=== PATIENT | female | born 2000 | race Caucasian/White ===

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

== ENCOUNTER → 2019-07-13 | Outpatient (CLI) | payer BC, OTHER, MEDICAID ==
[~2019-07-13] MED LIST changes: -ISOVUE-370 76% 100ML VIAL (Q9967) As Ordered ONE
--- NOTE | 2019-07-13 19:15 | REP ---
NASAL BONES: Three views of the nasal bones are performed. There is a nondisplaced fracture of the nasal bones. Maxillary spines are intact. Visualized paranasal sinuses are clear with no air fluid levels. IMPRESSION: Nondisplaced fracture of the nasal bones. Electronically Signed by Darius Marroquin MD 07/13/2019 11:27 P
== END ==
LOC: M WUC 17:21
PROVIDERS: ATTEND Physician Assistant
DX: S02.2XXA Fracture of nasal bones, initial encounter for closed fracture (principal); X58.XXXA Exposure to other specified factors, initial encounter; Y92.89 Other specified places as the place of occurrence of the external cause

== ENCOUNTER → 2019-12-14 | Outpatient (REF) | payer OTHER ==
[~2019-12-14] MED LIST changes: -ACET120S PO; +ACET125EL PO; +ASPI81CH48 PO; +ENDO100S PV; +ESTR2TAB2 PO; +LOVE1INJ SC; +MACR100C43 PO; +NALT50TA4 PO; +PRED10PA PO; +PRENTAB9 PO; +PROG50IN4 IM; +SYNT50TA PO
[2019-12-14 14:50] LABS: ESTRADIOL 1658.2 PG/ML; PROGESTERONE 28.34 NG/ML
== END ==
LOC: M LABDRWAD 12:19
PROVIDERS: ATTEND Obstetrics & Gynecology Reproductive Endocrinology
DX: E28.9 Ovarian dysfunction, unspecified (principal)

== ENCOUNTER → 2019-12-19 | Outpatient (REF) | payer OTHER ==
[2019-12-19 13:26] LABS: HCG, SERUM QUANTITATIVE < 1.0 MIU/ML
[2019-12-19 13:35] LABS: PROGESTERONE 19.88 NG/ML
== END ==
LOC: M LABDRWAD 11:10
PROVIDERS: ATTEND Obstetrics & Gynecology Reproductive Endocrinology
DX: Z32.00 Encounter for pregnancy test, result unknown (principal)

== ENCOUNTER → 2020-02-13 | Outpatient (REF) | payer OTHER ==
[2020-02-14 10:02] LABS: ESTRADIOL 420.8 PG/ML; PROGESTERONE 42.9 NG/ML
== END ==
LOC: M LABDRWAD 12:17
PROVIDERS: ATTEND Obstetrics & Gynecology Reproductive Endocrinology
DX: E28.9 Ovarian dysfunction, unspecified (principal)

== ENCOUNTER 2020-02-18 02:05 | Emergency (ER) | payer BC, OTHER ==
[~2020-02-18] VITALS: Ht 157.5 cm; Wt 100.0 kg
[~2020-02-18 02:05] MED LIST changes: -ASPI81CH48 PO; -ENDO100S PV; -ESTR2TAB2 PO; -LOVE1INJ SC; -MACR100C43 PO; -NALT50TA4 PO; -PRED10PA PO; -PRENTAB9 PO; -PROG50IN4 IM; -SYNT50TA PO
[2020-02-18] MEDS ORDERED: ASPI81CH48 PO (02:17)
[2020-02-18] MEDS ORDERED: ESTR2TAB2 PO (02:17)
[2020-02-18] MEDS ORDERED: PRED10PA PO (02:17)
[2020-02-18] MEDS ORDERED: PRENTAB9 PO (02:17)
[2020-02-18] MEDS ORDERED: SYNT50TA PO (02:17)
[2020-02-18] MEDS ORDERED: LOVE1INJ SC (02:17)
[2020-02-18] MEDS ORDERED: ENDO100S PV (02:17)
[2020-02-18] MEDS ORDERED: NALT50TA4 PO (02:17)
[2020-02-18] MEDS ORDERED: PROG50IN4 IM (02:17)
[2020-02-18 03:04] LABS: HEMATOCRIT 41.5 % (36.0-47.0); HEMOGLOBIN 13.4 g/dl (12.0-15.5); MEAN CORPUSCULAR HEMOGLOBIN 30.2 pg (27.0-33.0); MEAN CORPUSCULAR HGB CONC 32.3 g/dl (32.0-36.5); MEAN CORPUSCULAR VOLUME 93.5 fl (80.0-96.0); PLATELET COUNT, AUTOMATED 397 10^3/uL (150-450); RED BLOOD COUNT 4.44 10^6/uL (4.00-5.40); WHITE BLOOD COUNT 19.7 10^3/uL (4.0-10.0)
[2020-02-18 06:48] LABS: BASO # 0.1 10^3/uL (0.0-0.2); BASO % 0.3 % (0.0-1.0); EOS # 0.2 10^3/uL (0.0-0.5); EOS % 0.8 % (0.0-3.0); LYMPH # 6.2 10^3/uL (1.5-5.0); LYMPH % 32.7 % (24.0-44.0); NEUTROPHILS # 11.5 10^3/uL (1.5-8.5); NEUTROPHILS % 60.8 % (36.0-66.0)
--- NOTE | 2020-02-18 08:54 | REPVR ---
PROCEDURE INFORMATION: Exam: US First Trimester, Transabdominal and US , Transvaginal Exam date and time: 02/18/2020 7:39 AM Age: 19 years old Clinical indication: Lmp or gestational age (in weeks): 3w6d; Antepartum complications; Bleeding; ; Additional info: Vaginal bleedin ivf, implantation 02/06 TECHNIQUE: Imaging protocol: Real-time transabdominal obstetrical ultrasound of the maternal pelvis and a first trimester , less than 14 weeks 0 days, with image documentation. Transvaginal imaging was used for better evaluation of the fetus, adnexa, and/or cervix. COMPARISON: No relevant prior studies available. FINDINGS: Gestation: No intrauterine gestation was identified. MATERNAL: Uterus: The uterus measures 6.9 x 3.6 x 5.1 cm as best seen transvaginally. It is homogeneous in echotexture, without demonstrated lesion. The endometrium measures up to 16.3 mm in thickness, and there is small fluid within. Right adnexa: The right ovary measures 1.8 x 3.2 x 1.4 cm. It contains small follicles and demonstrates internal flow. Left adnexa: The left ovary measures 2.0 x 1.9 x 1.4 cm. It contains small follicles and demonstrates internal flow. Intraperitoneal space: There is trace free fluid in the cul-de-sac. No extraovarian adnexal mass is demonstrated. IMPRESSION: 1. No intrauterine or extrauterine gestation identified, with the endometrium thickened up to 16.3 mm and with small fluid. Findings could represent normal early or failed . Suggest correlation with serial beta hCGs and follow-up ultrasound when clinically appropriate. 2. Trace free fluid in the cul-de-sac. Electronically signed by: Jose Bruce On 02/18/2020 08:54:08 AM
[2020-02-18] MEDS ORDERED: MACR100C43 PO (10:15)
[2020-02-18 10:37] VITALS: BP 144/83
--- NOTE | 2020-02-18 11:35 | ED PDOC ---
Post-Departure Follow-Up pati gates and dr baig faxed formal report of first trimester us for Андрей Conklin lg, MD Feb 18, 2020 11:35
== END 2020-02-18 10:39 | disposition home or self-care (01) ==
LOC: M ED 02:05
DX: O26.851 Spotting complicating pregnancy, first trimester (principal); O23.41 Unspecified infection of urinary tract in pregnancy, first trimester; O99.891 Other specified diseases and conditions complicating pregnancy; O99.281 Endocrine, nutritional and metabolic diseases complicating pregnancy, first trimester; E28.2 Polycystic ovarian syndrome; E03.9 Hypothyroidism, unspecified; Z3A.01 Less than 8 weeks gestation of pregnancy

== ENCOUNTER → 2020-02-20 | Outpatient (REF) | payer OTHER ==
[~2020-02-20] MED LIST changes: +ASPI81CH48 PO; +ENDO100S PV; +ESTR2TAB2 PO; +LOVE1INJ SC; +MACR100C43 PO; +NALT50TA4 PO; +PRED10PA PO; +PRENTAB9 PO; +PROG50IN4 IM; +SYNT50TA PO
[2020-02-20 13:15] LABS: PROGESTERONE 21.72 NG/ML
== END ==
LOC: M LABDRWAD 12:09
PROVIDERS: ATTEND Obstetrics & Gynecology Reproductive Endocrinology
DX: Z32.00 Encounter for pregnancy test, result unknown (principal)

== ENCOUNTER → 2020-04-23 | Outpatient (REF) | payer OTHER ==
[~2020-04-23] MED LIST changes: -BUPR150T3 PO; +BUPR150T4 PO
[2020-04-23 14:14] LABS: HEMOGLOBIN 13.9 g/dl (12.0-15.5); MEAN CORPUSCULAR HEMOGLOBIN 30.8 pg (27.0-33.0); MEAN CORPUSCULAR HGB CONC 33.1 g/dl (32.0-36.5); MEAN CORPUSCULAR VOLUME 93.1 fl (80.0-96.0); PLATELET COUNT, AUTOMATED 333 10^3/uL (150-450); RED BLOOD COUNT 4.51 10^6/uL (4.00-5.40)
[2020-04-23 15:00] LABS: FREE T4 0.97 NG/DL (0.76-1.46); THYROID STIMULATING HORMONE 1.27 uIU/ML (0.358-3.740)
[2020-04-23 15:41] LABS: HEPATITIS C VIRUS ABY INDEX < 0.0 INDEX (<0.8); HIV 1&2 SCREEN CENTAUR NEGATIVE (NEGATIVE)
[2020-04-23 15:54] LABS: CHLAMYDIA DNA AMPLIFICATION NEGATIVE (NEGATIVE); GC DNA AMPLIFICATION NEGATIVE (NEGATIVE)
== END ==
LOC: M PLALAB 10:37
PROVIDERS: ATTEND Obstetrics & Gynecology
DX: Z3A.13 13 weeks gestation of pregnancy (principal)

== ENCOUNTER → 2020-05-21 | Outpatient (REF) | payer OTHER | LOC: M SFHCWAGY 15:23 | PROVIDERS: ATTEND Advanced Practice Midwife | DX: O09.812 Supervision of pregnancy resulting from assisted reproductive technology, second trimester (principal) ==

== ENCOUNTER → 2020-06-11 | Outpatient (REF) | payer OTHER ==
[~2020-06-11] MED LIST changes: +BUPR150T12 PO; -BUPR150T4 PO
[2020-06-11 15:45] LABS: HEMATOCRIT 37.5 % (36.0-47.0); HEMOGLOBIN 12.4 g/dl (12.0-15.5); MEAN CORPUSCULAR HEMOGLOBIN 30.6 pg (27.0-33.0); MEAN CORPUSCULAR HGB CONC 33.1 g/dl (32.0-36.5); MEAN CORPUSCULAR VOLUME 92.6 fl (80.0-96.0); PLATELET COUNT, AUTOMATED 287 10^3/uL (150-450); RED BLOOD COUNT 4.05 10^6/uL (4.00-5.40); WHITE BLOOD COUNT 9.8 10^3/uL (4.0-10.0)
[2020-06-11 16:05] LABS: GLUCOSE CHALLENGE TEST 1 HOUR 128 MG/DL (LESS THAN 140)
[2020-06-11 17:02] LABS: HEPATITIS C VIRUS ABY INDEX < 0.0 INDEX (<0.8); HIV 1&2 SCREEN CENTAUR NEGATIVE (NEGATIVE)
== END ==
LOC: M PLALAB 12:26
PROVIDERS: ATTEND Advanced Practice Midwife
DX: O09.812 Supervision of pregnancy resulting from assisted reproductive technology, second trimester (principal)

== ENCOUNTER → 2020-06-11 | Outpatient (CLI) | payer BC ==
--- NOTE | 2020-06-11 16:52 | REP ---
INDICATION: ANATOMY COMPARISON: None TECHNIQUE: Transabdominal obstetrical ultrasound with color Doppler evaluation. FINDINGS: Examination demonstrates a single live intrauterine in breech presentation. motion is identified by technologist. Placenta is noted posterior and grade 0 without evidence for placenta previa or abruption. Amniotic fluid volume is normal. Cervix measures 3.4 cm in length and appears closed.. Gestational age by LMP 20 weeks 3 days with TALA 10/26/2020. Gestational age by current measurements 19 weeks 6 days with TALA 10/30/2020. FHR equals 132 beats per minute. BPD: 4.6 cm at 19 weeks 5 days HC: 17.1 cm at 19 weeks 5 days AC: 15.5 cm at 20 weeks 5 days FL: 3.1 cm at there is 19 weeks 5 days HL: 3.0 cm at 19 weeks 5 days HC/AC: 1.10 Estimated weight 336 grams (31stpercentile). Anatomical assessment demonstrates normal structures including cranium, choroid plexus, cavum, cerebellum/posterior fossa, facial features, lungs, four-chamber heart/ventricular outflow tracts, diaphragm, stomach, cord insertion/three-vessel cord, kidneys/bladder, and extremities. IMPRESSION: 1. Single live intrauterine in breech presentation demonstrating appropriate estimated weight. 2. Limited evaluation of the spine. Remainder of the anatomical assessment is complete and normal. <Electronically signed by Brayan Jimenez > 06/11/20 [id number]
== END ==
LOC: M WHC 13:38
PROVIDERS: ATTEND Advanced Practice Midwife
DX: O09.812 Supervision of pregnancy resulting from assisted reproductive technology, second trimester (principal); Z3A.19 19 weeks gestation of pregnancy

== ENCOUNTER → 2020-07-23 | Outpatient (CLI) | payer BC ==
--- NOTE | 2020-07-23 15:30 | REP ---
INDICATION: F/U ANATOMY. TALA October 26, 2020. COMPARISON: Comparison sonography June 11, 2020.. TECHNIQUE: Transabdominal obstetric sonography. FINDINGS: Scanning through the gravid uterus demonstrates a viable single intrauterine gestation in breech lie. motion is observed and heart rate is recorded at 140 beats per minute. A posterior posterior placenta is seen, grade 0, without evidence of placenta previa. Closed cervical length is measured at 3.6 cm transabdominally. No extrauterine abnormality is observed. Amniotic fluid is subjectively normal. spine is visualized on today's exam and is unremarkable. Exam quality is inhibited some degree by maternal body habitus and position.. Biometry chart: BPD 6.3 cm, 25 weeks 2 days Head circumference 24.7 cm, 26 weeks 6 days Abdominal circumference 22.8 cm, 27 weeks 1 day Femur length 4.5 cm, 25 weeks 0 days Humeral length 4.1 cm, 24 weeks 5 days HC AC ratio normal 1.09 Cephalic index 0.68 (0.70-0.86) Estimated weight 928 g, 2 lb 0 oz, 36 percentile for 26 weeks 3 days IMPRESSION: Viable single intrauterine gestation at 25 weeks 6 days by today's composite sonographic criteria. TALA by today's sonography October 30, 2020. No complication identified. Expected gestational age estimate based on prior sonography is 26 weeks 3 days. TALA by prior sonography October 26, 2020. Appropriate interval growth. spine is seen today and felt to be normal. <Electronically signed by Lauri Real > 07/23/20 [id number]
== END ==
LOC: M WHC 11:03
PROVIDERS: ATTEND Advanced Practice Midwife
DX: O99.282 Endocrine, nutritional and metabolic diseases complicating pregnancy, second trimester (principal)

== ENCOUNTER → 2020-08-20 | Outpatient (REF) | payer OTHER ==
[2020-08-20 14:06] LABS: HEMOGLOBIN 12.2 g/dl (12.0-15.5); MEAN CORPUSCULAR HEMOGLOBIN 29.6 pg (27.0-33.0); MEAN CORPUSCULAR HGB CONC 32.1 g/dl (32.0-36.5); MEAN CORPUSCULAR VOLUME 92.2 fl (80.0-96.0); PLATELET COUNT, AUTOMATED 261 10^3/uL (150-450); RED BLOOD COUNT 4.12 10^6/uL (4.00-5.40); WHITE BLOOD COUNT 8.4 10^3/uL (4.0-10.0)
== END ==
LOC: M PLALAB 11:00
PROVIDERS: ATTEND Specialist
DX: Z36.89 Encounter for other specified antenatal screening (principal); Z34.02 Encounter for supervision of normal first pregnancy, second trimester

== ENCOUNTER → 2020-10-01 | Outpatient (REF) | payer OTHER ==
[2020-10-01 14:37] LABS: FREE T4 0.73 NG/DL (0.76-1.46); THYROID STIMULATING HORMONE 1.7 uIU/ML (0.358-3.740)
== END ==
LOC: M PLALAB 11:33
PROVIDERS: ATTEND Advanced Practice Midwife
DX: O99.283 Endocrine, nutritional and metabolic diseases complicating pregnancy, third trimester (principal)

== ENCOUNTER 2020-10-18 20:30 | Inpatient (IN) | payer BC, OTHER, MEDICAID ==
[~2020-10-18] VITALS: Ht 157.5 cm; Wt 122.5 kg
[2020-10-18 20:57] VITALS: BP 144/90
[2020-10-18 21:06] VITALS: BP 118/55
--- NOTE | 2020-10-18 22:21 | HPEPDOC ---
Obstetrical History & Physical General Date of Admission Oct 18, 2020 at 21:53 History of Present Illness 20yo G1 at 39w0d presents for IOL. Chief Complaint: Induction of labor Information Provided By: Patient Age: 20 : 1 Care Care: Good Care Dating Final EDC: Oct 26, 2020 Final EDC by: LMP EGA at Admission: 39 Past Medical History Past Obstetrical History : Past Obstetrical History: Primgravida Past Medical History Surgical History: Denies/None Family History Significant Family History: Cancer, Hypertension Social History Family situation: Spouse/partner home Psychosocial History: No pertinent psych hx * Smoker: former Smoker Alcohol: Denies Drugs: denies Allergies Coded Allergies: No Known Allergies (Verified , 03/25/17) Physical Examination Physical Examination GENERAL: Alert and oriented times three. BREAST: . ABDOMEN: Gravid and non-tender to touch. FETUS: Is vertex (VTX) by sterile vaginal examination (SVE), fetus is vertex (VTX) by Kennedy. HEART RATE: Regular rate and rhythm. LUNGS: Clear to auscultation (CTA). Vital Signs/I&O Vital Signs Date Time Temp Pulse Resp B/P (MAP) Pulse Ox O2 Delivery O2 Flow Rate FiO2 10/18/20 21:06 93 16 118/55 (76) 10/18/20 20:57 97.9 Pertinent Laboratoy Data Blood Type: A+ RBC Antibody Screen: Negative HIV: Negative Hepatitis B: Negative Hepatitis C: Negative Rapid Plasma Reagin: Nonreactive Rubella: Immune Chlamydia/Gonorrhea: Negative Group B Streptococcus: Negative Glucose Tolerance Test: 128 Anatomy Ultrasound Placenta Location: Posterior Normal Anatomy: Yes Placenta Previa: No Vaginal Examination Dilation: Fingertip Station: -3 Cervical Consistency: Firm Cervical Position: Posterior Presentation: Cephalic presentation Assessment Variability: Moderate Accelerations: Positive Tocometer Contractions: No Assessment/Plan Assessment 20yo G1 at 39w0d for social induction of labor Reassuring status Plan Admit and orient. Senior National Account Manager and consent. Diet: regular. Group B Streptococcus (GBS) negative. Labs and intravenous (IV) per unit protocol. Counseled on Pitocin and induction of labor (IOL). Anticipate normal spontaneous delivery (). C-S as appropriate. IDA BARBOZA MD. Oct 18, 2020 22:21
[2020-10-19] VITALS (40 sets, daily range): BP systolic 72–172; BP diastolic 37–123
[2020-10-19 00:12] LABS: HEMATOCRIT 37.9 % (36.0-47.0); HEMOGLOBIN 12.2 g/dl (12.0-15.5); MEAN CORPUSCULAR HGB CONC 32.2 g/dl (32.0-36.5); MEAN CORPUSCULAR VOLUME 90.2 fl (80.0-96.0); PLATELET COUNT, AUTOMATED 229 10^3/uL (150-450); WHITE BLOOD COUNT 11.1 10^3/uL (4.0-10.0)
[2020-10-19] MEDS: miSOPROStol 50MCG 1/2 TABLET PO SCH ×3 (00:46→13:23)
[2020-10-19] MEDS ORDERED: diphenhydrAMINE 25MG CAP PO ONE (01:50)
[2020-10-19] MEDS ORDERED: PROMETHAZINE INJ 25 MG/ML VIAL (J2550) IM ONE (04:00)
[2020-10-19] MEDS ORDERED: BUTORPHANOL 2 MG/ML INJ (J0595) IV ONE ×2 (04:00→12:15)
[2020-10-19] MEDS ORDERED: PROMETHAZINE INJ 25 MG/ML VIAL (J2550) IV ONE ×2 (05:15→12:15)
[2020-10-19] MEDS ORDERED: FENTANYL 2MCG/ML ROPIVACAINE 0.2% IN 0.9% NACL 100ML IVBAG As Ordered ONE (15:52)
[2020-10-19] MEDS ORDERED: LACTATED RINGER'S 1000 ML IV ONE (16:10)
[2020-10-19] MEDS ORDERED: LR 1,000 ML IV SCH (16:10)
[2020-10-19] MEDS ORDERED: REFRIGERATOR IV KEYS XX PRN (16:40)
[2020-10-19] MEDS ORDERED: diphenhydrAMINE 50MG/ML VIAL (J1200) IV PRN (16:40)
[2020-10-19] MEDS ORDERED: LACTATED RINGER'S 1000 ML IV PRN (16:40)
[2020-10-19] MEDS ORDERED: EPIDURAL COMMENT XX SCH (16:40)
[2020-10-19] MEDS ORDERED: ONDANSETRON 4MG/2ML VIAL IV PRN (16:40)
[2020-10-19] MEDS ORDERED: EPIDURAL/PCA KEYS XX PRN (16:40)
[2020-10-19] MEDS ORDERED: NALOXONE INJ 0.4MG/1ML VIAL (J2310 PER 1MG) IV PRN (16:40)
[2020-10-19] MEDS: FENTANYL/ROPIVACAINE/NACL BAG 100 ML EPIDURAL SCH (16:50)
[2020-10-19] MEDS ORDERED: OXYTOCIN DRIP 30 UNITS in IV 1 EA IV SCH (17:45)
--- NOTE | 2020-10-19 17:50 | IPNPDOC ---
Obstetrical Progress Note Date of Service Oct 19, 2020 Subjective Dedra comfortable following epidural. Objective Vital Signs Date Time Temp Pulse Resp B/P (MAP) Pulse Ox O2 Delivery O2 Flow Rate FiO2 10/19/20 16:52 57 112/55 (74) 10/19/20 15:13 97.7 16 10/19/20 06:43 Room Air Assessment Variability: Moderate Accelerations: Positive Heart Rate Tracing: Category I Tocometer Contractions: Yes Sterile Vaginal Examination Dilation: 6 cm Effacement (%): 90% Station: -1 Cervical Consistency: Soft Cervical Position: Anterior Postion/Presentation: Cephalic presentation Assessment and Plan Age: 20 : 1 Status: Reassuring Group B Streptococcus: Negative Anticipate: Vaginal Delivery IDA BARBOZA MD. Oct 19, 2020 17:50
[2020-10-19] MEDS: LR 1,000 ML IV SCH (18:05)
[2020-10-19] MEDS: ePHEDrine SULFATE 25 MG/5 ML(5MG/ML) SYRINGE IV PRN ×4 (18:38→19:08)
[2020-10-19] MEDS ORDERED: ePHEDrine INJ 50 MG/ML VIAL IV PRN (19:05)
[2020-10-20] VITALS (17 sets, daily range): BP systolic 102–156; BP diastolic 52–80
[2020-10-20] MEDS: LR 1,000 ML IV SCH ×2 (01:22→03:32)
[2020-10-20] MEDS: FENTANYL/ROPIVACAINE/NACL BAG 100 ML EPIDURAL SCH (01:22)
[2020-10-20] MEDS ORDERED: OXYTOCIN 30 UNITS IN 0.9% NaCl 500ML IV BAG (J2590) As Ordered ONE (04:12)
[2020-10-20] MEDS ORDERED: MOM 30ML SUSPENSION UDC PO PRN (04:20)
[2020-10-20] MEDS ORDERED: ACETAMINOPHEN TAB 650MG DOSE (2X325MG) PO PRN (04:20)
[2020-10-20] MEDS ORDERED: IBUPROFEN 600MG TAB PO PRN (04:20)
[2020-10-20] MEDS ORDERED: ACETAMINOPHEN 500 MG TAB PO PRN (04:20)
[2020-10-20] MEDS ORDERED: MEASLES,MUMPS,RUBELLA VACCINE INJ (MMR-II) (90707) SC SCH (04:20)
[2020-10-20] MEDS ORDERED: RHOGAM 300 MCG (1500 IU) INJ (J2790) IM SCH (04:20)
[2020-10-20] MEDS ORDERED: DOCUSATE SODIUM 100MG CAPSULE PO PRN (04:20)
[2020-10-20] MEDS ORDERED: METHYLERGONOVINE MALEATE 0.2 MG TAB PO PRN (04:20)
[2020-10-20] MEDS ORDERED: OXYTOCIN DRIP 30 UNITS in IV 1 EA IV SCH ×4 (04:20)
[2020-10-20] MEDS ORDERED: IBUPROFEN 800 MG TAB PO PRN (04:20)
--- NOTE | 2020-10-20 04:20 | DNPDOC ---
[facility] Delivery Note Delivery Note DATE OF DELIVERY: 10/20/2020 TIME OF : 0302 GENDER: Female APGARS: 9 and 9. WEIGHT: 6 lbs. 7 oz. LACERATIONS: 1MLL ANESTHESIA: epidural ESTIMATED BLOOD LOSS: 200 ml COUNTS: 5 laparotomy sponges accounted for prior to after delivery. 1 sharps removed from delivery field. DELIVERY NOTE: On October 2004/13/2001 was patient is a 20-year-old 1 now para 1 at spontaneous vaginal delivery of a liveborn female Apgars 9 and 9 weight 6 lbs. 7 oz. Head was delivered occiput posterior (OP), followed by delivery of the shoulders and corpus. was handed to mom with a good cry. Cord was clamped times two and was cut by support person under my direction. Placenta was then drained and delivered grossly intact. A premixed bag of 500 mL of normal saline with 30 units of Pitocin was then bolused along with uterine massage until the uterus was firm. On inspection there was a 1MLL that was repaired with 3-0 Vicryl. On reinspection, cervix, vagina, perineum was grossly intact and hemostatic. Mom and baby in recovery on stable condition. The couples decided to name in daughter Tabatha IDA BARBOZA MD. Oct 20, 2020 04:20
[2020-10-20] MEDS: PRENATAL VITAMINS CHEWABLE TABLET PO SCH (09:15)
[2020-10-21 06:00] VITALS: BP 106/58
[2020-10-21] MEDS: PRENATAL VITAMINS CHEWABLE TABLET PO SCH (10:53)
[2020-10-21 18:00] VITALS: BP 133/64
[2020-10-22] MEDS ORDERED: IBUP80TA PO (04:35)
[2020-10-22] MEDS ORDERED: ACET-683 PO (04:35)
[2020-10-22 06:17] VITALS: BP 120/66
[2020-10-22] MEDS: PRENATAL VITAMINS CHEWABLE TABLET PO SCH (07:56)
== END 2020-10-22 12:00 | disposition home or self-care (01) | DRG 560 ==
LOC: M LDO 20:30 → M LDI 21:53 → M OBS 10-20 05:08
PROVIDERS: ADMIT Obstetrics & Gynecology; ATTEND Obstetrics & Gynecology
PROC: 3E0P7GC Introduction of Other Therapeutic Substance into Female Reproductive, Via Natural or Artificial Opening (ICD-10-PCS; 2020-10-18)
PROC: 10E0XZZ Delivery of Products of Conception, External Approach (ICD-10-PCS; principal; 2020-10-20)
PROC: 0HQ9XZZ Repair Perineum Skin, External Approach (ICD-10-PCS; 2020-10-20)
DX: O70.0 First degree perineal laceration during delivery (principal); Z3A.39 39 weeks gestation of pregnancy; Z37.0 Single live birth

== ENCOUNTER → 2022-01-06 | Outpatient (REF) | payer MEDICAID ==
[~2022-01-06] MED LIST changes: +ACET-683 PO; -ESTR2TAB2 PO; +ESTR2TAB3 PO; +IBUP80TA PO
== END ==
LOC: M LAB REF 21:25
PROVIDERS: ATTEND Physician Assistant
DX: B34.9 Viral infection, unspecified (principal)

== ENCOUNTER → 2022-04-19 | Outpatient (CLI) | payer OTHER ==
[2022-04-19 15:51] LABS: HEMATOCRIT 40.1 % (36.0-47.0); HEMOGLOBIN 13.4 g/dl (12.0-15.5); MEAN CORPUSCULAR HEMOGLOBIN 30.7 pg (27.0-33.0); MEAN CORPUSCULAR HGB CONC 33.4 g/dl (32.0-36.5); MEAN CORPUSCULAR VOLUME 91.8 fl (80.0-96.0); PLATELET COUNT, AUTOMATED 279 10^3/uL (150-450); RED BLOOD COUNT 4.37 10^6/uL (4.00-5.40); WHITE BLOOD COUNT 9.1 10^3/uL (4.0-10.0)
[2022-04-19 16:14] LABS: HIV 1&2 SCREEN CENTAUR NEGATIVE (NEGATIVE)
[2022-04-19 21:33] LABS: GC DNA AMPLIFICATION NEGATIVE (NEGATIVE)
== END ==
LOC: M PLALAB 11:58
PROVIDERS: ATTEND Obstetrics & Gynecology
DX: Z34.81 Encounter for supervision of other normal pregnancy, first trimester (principal)

== ENCOUNTER → 2022-05-03 | Outpatient (REF) | payer OTHER, MEDICAID | LOC: M SFHCWAGY 12:41 | PROVIDERS: ATTEND Obstetrics & Gynecology | DX: R82.90 Unspecified abnormal findings in urine (principal) ==

== ENCOUNTER → 2022-05-31 | Outpatient (CLI) | payer OTHER | LOC: M WHC 12:07 | PROVIDERS: ATTEND Obstetrics & Gynecology | DX: Z34.92 Encounter for supervision of normal pregnancy, unspecified, second trimester (principal) ==

== ENCOUNTER → 2022-06-02 | Outpatient (REF) | payer OTHER | LOC: M SFHCWAGY 16:55 | PROVIDERS: ATTEND Obstetrics & Gynecology | DX: R82.90 Unspecified abnormal findings in urine (principal) ==

== ENCOUNTER → 2022-06-28 | Outpatient (CLI) | payer OTHER | LOC: M WHC 11:56 | PROVIDERS: ATTEND Obstetrics & Gynecology | DX: Z36.2 Encounter for other antenatal screening follow-up (principal) ==

== ENCOUNTER → 2022-08-04 | Outpatient (CLI) | payer OTHER ==
[2022-08-04 14:02] LABS: HEMATOCRIT 36.6 % (36.0-47.0); HEMOGLOBIN 11.7 g/dl (12.0-15.5); MEAN CORPUSCULAR VOLUME 93.8 fl (80.0-96.0); PLATELET COUNT, AUTOMATED 258 10^3/uL (150-450); WHITE BLOOD COUNT 9.1 10^3/uL (4.0-10.0)
== END ==
LOC: M PLALAB 08:30
PROVIDERS: ATTEND Advanced Practice Midwife
DX: Z36.9 Encounter for antenatal screening, unspecified (principal)

== ENCOUNTER 2022-08-31 20:33 | Outpatient (CLI) | payer OTHER, MEDICAID ==
[~2022-08-31] VITALS: Ht 160 cm; Wt 115.1 kg
[2022-08-31 21:02] VITALS: BP 139/65
[2022-08-31] MEDS ORDERED: PRENTAB9 PO (21:15)
[2022-08-31] MEDS ORDERED: HOME MED LIST COMPLETE! XX SCH (21:20)
[2022-08-31] MEDS ORDERED: ACETAMINOPHEN 500 MG TAB PO ONE (21:55)
[2022-08-31 22:22] LABS: AMORPHOUS SEDIMENT SMALL (NEGATIVE); APPEARANCE, URINE CLOUDY (CLEAR); BACTERIA, URINE AUTO 1+ (NEGATIVE); BILIRUBIN, URINE AUTO NEGATIVE (NEGATIVE); BLOOD, URINE BLOOD NEGATIVE (NEGATIVE); COLOR, URINE YELLOW (YELLOW); GLUCOSE, URINE (UA) AUTO NEGATIVE (NEGATIVE); KETONE, URINE AUTO NEGATIVE (NEGATIVE); LEUKOCYTE ESTERASE, URINE AUTO 1+ (NEGATIVE); MUCUS, URINE SMALL (NEGATIVE); NITRITE, URINE AUTO NEGATIVE (NEGATIVE); PROTEIN, URINE AUTO NEGATIVE (NEGATIVE); RBC, URINE AUTO 1 /HPF (0-3); SPECIFIC GRAVITY URINE AUTO 1.018 (1.002-1.035); SQUAMOUS EPITHELIAL CELL UR AU 16 /HPF (0-6); UROBILINOGEN, URINE AUTO 0.2 mg/dL (0.0-2.0); WBC, URINE AUTO 5 /HPF (0-3)
== END 2022-08-31 23:00 | disposition home or self-care (01) ==
LOC: M LDO 20:33
PROVIDERS: ATTEND Obstetrics & Gynecology
DX: O26.893 Other specified pregnancy related conditions, third trimester (principal); R25.2 Cramp and spasm; M54.50 Low back pain, unspecified; Z3A.32 32 weeks gestation of pregnancy

== ENCOUNTER → 2022-10-01 | Outpatient (REF) | payer OTHER, MEDICAID | LOC: M SFHCWAGY 09:58 | PROVIDERS: ATTEND Specialist | DX: Z34.83 Encounter for supervision of other normal pregnancy, third trimester (principal) ==

== ENCOUNTER 2022-10-23 20:41 | Inpatient (IN) | payer MEDICAID, OTHER ==
[~2022-10-23] VITALS: Ht 160 cm; Wt 119.8 kg
[2022-10-23 20:55] VITALS: BP 126/62
[2022-10-23] MEDS ORDERED: HOME MED LIST COMPLETE! XX SCH (21:15)
[2022-10-23 21:34] LABS: HEMATOCRIT 35.9 % (36.0-47.0); HEMOGLOBIN 11.7 g/dl (12.0-15.5); MEAN CORPUSCULAR HEMOGLOBIN 28.6 pg (27.0-33.0); MEAN CORPUSCULAR HGB CONC 32.6 g/dl (32.0-36.5); MEAN CORPUSCULAR VOLUME 87.8 fl (80.0-96.0); PLATELET COUNT, AUTOMATED 236 10^3/uL (150-450); RED BLOOD COUNT 4.09 10^6/uL (4.00-5.40); WHITE BLOOD COUNT 7.1 10^3/uL (4.0-10.0)
[2022-10-23] MEDS ORDERED: LACTATED RINGER'S 1000 ML IV STA (22:41)
[2022-10-23 22:43] VITALS: BP 129/58
[2022-10-23] MEDS ORDERED: CARBOPROST TROMETHAMINE 250 MCG/ML AMP IM PRN (22:45)
[2022-10-23] MEDS ORDERED: LIDOCAINE 1% MDV 20ML VIAL INFIL PRN (22:45)
[2022-10-23] MEDS ORDERED: OXYTOCIN DRIP 30 UNITS in IV 1 EA IV PRN (22:45)
[2022-10-23] MEDS ORDERED: OXYTOCIN DRIP 30 UNITS in IV 1 EA IV SCH (22:45)
[2022-10-23] MEDS ORDERED: TRANEXAMIC ACID INJection 1,000 MG in NS 100 ML IV PRN (22:45)
[2022-10-23] MEDS ORDERED: METHYLERGONOVINE MALEATE 0.2MG/ML 1ML VIAL IM PRN (22:45)
[2022-10-23] MEDS ORDERED: miSOPROStol 50MCG 1/2 TABLET PO ONE (23:00)
[2022-10-24] VITALS (43 sets, daily range): BP systolic 98–151; BP diastolic 55–102; TEMP 96.7; O2SAT 97
[2022-10-24] MEDS: LR 1,000 ML IV SCH ×2 (03:43→11:18)
[2022-10-24] MEDS ORDERED: FENTANYL 2MCG/ML ROPIVACAINE 0.2% IN 0.9% NACL 100ML IVBAG As Ordered ONE (07:32)
[2022-10-24] MEDS ORDERED: FENTANYL/ROPIVACAINE/NACL BAG 100 ML EPIDURAL SCH (07:35)
[2022-10-24] MEDS ORDERED: NALOXONE INJ 0.4MG/1ML VIAL IV PRN (07:35)
[2022-10-24] MEDS ORDERED: ePHEDrine SULFATE 25 MG/5 ML(5MG/ML) SYRINGE IVP PRN (07:35)
[2022-10-24] MEDS ORDERED: diphenhydrAMINE 50MG/ML VIAL IV PRN (07:35)
[2022-10-24] MEDS ORDERED: ONDANSETRON 4MG 2ML VIAL IV PRN ×2 (07:35→12:15)
[2022-10-24] MEDS ORDERED: EPIDURAL/PCA KEYS XX PRN (07:35)
[2022-10-24] MEDS ORDERED: LR 500 ML IV PRN (07:35)
[2022-10-24] MEDS ORDERED: HOME MED LIST COMPLETE! XX SCH (08:55)
[2022-10-24] MEDS: PRENATAL VITAMINS CHEWABLE TABLET PO SCH (09:00)
[2022-10-24] MEDS ORDERED: IBUPROFEN 800 MG TAB PO PRN (12:15)
[2022-10-24] MEDS ORDERED: ACETAMINOPHEN 500 MG TAB PO PRN (12:15)
[2022-10-24] MEDS ORDERED: LR 1,000 ML IV SCH (12:15)
[2022-10-24] MEDS ORDERED: METHYLERGONOVINE MALEATE 0.2 MG TAB PO PRN (12:15)
[2022-10-24] MEDS ORDERED: DOCUSATE SODIUM 100MG CAPSULE PO PRN (12:15)
[2022-10-24] MEDS ORDERED: ACETAMINOPHEN TAB 650MG DOSE (2X325MG) PO PRN (12:15)
[2022-10-24] MEDS ORDERED: RHOGAM 300MCG (1500IU) INJ IM SCH (12:15)
[2022-10-24] MEDS ORDERED: OXYTOCIN DRIP 30 UNITS in IV 1 EA IV SCH (12:15)
[2022-10-24] MEDS ORDERED: IBUPROFEN 600MG TAB PO PRN (12:15)
[2022-10-24] MEDS ORDERED: DIBUCAINE 1% OINTMENT 30GM TOP PRN (12:15)
[2022-10-24] MEDS ORDERED: ANUSOL HC CREAM 30GM TOP PRN (12:15)
[2022-10-25 06:00] VITALS: BP 123/64; O2SAT 97
[2022-10-25] MEDS: PRENATAL VITAMINS CHEWABLE TABLET PO SCH (09:36)
[2022-10-25] MEDS ORDERED: ACET-683 PO (17:32)
[2022-10-25] MEDS ORDERED: IBUP80TA PO (17:32)
[2022-10-26] MEDS ORDERED: MEASLES,MUMPS,RUBELLA VACCINE INJ (MMR-II) SC.IMMUN ONE (09:00)
== END 2022-10-25 19:12 | disposition home or self-care (01) | DRG 560 ==
LOC: M LDI 20:41 → M OBS 10-24 14:05
PROVIDERS: ADMIT Obstetrics & Gynecology; ATTEND Obstetrics & Gynecology
PROC: 3E0P7GC Introduction of Other Therapeutic Substance into Female Reproductive, Via Natural or Artificial Opening (ICD-10-PCS; 2022-10-23)
PROC: 10E0XZZ Delivery of Products of Conception, External Approach (ICD-10-PCS; principal; 2022-10-24)
DX: O99.284 Endocrine, nutritional and metabolic diseases complicating childbirth (principal); E03.9 Hypothyroidism, unspecified; E28.2 Polycystic ovarian syndrome; Z87.891 Personal history of nicotine dependence; Z37.0 Single live birth; Z3A.39 39 weeks gestation of pregnancy

== ENCOUNTER → 2022-12-17 | Outpatient (REF) | payer OTHER, MEDICAID | LOC: M SFHCWAGY 12:47 | PROVIDERS: ATTEND Obstetrics & Gynecology | DX: R30.0 Dysuria (principal) ==

== ENCOUNTER → 2023-12-23 | Outpatient (CLI) | payer OTHER ==
[2023-12-23 13:27] LABS: HEMOGLOBIN 13.4 g/dl (12.0-15.5); MEAN CORPUSCULAR HEMOGLOBIN 30.8 pg (27.0-33.0); MEAN CORPUSCULAR HGB CONC 34.4 g/dl (32.0-36.5); MEAN CORPUSCULAR VOLUME 89.7 fl (80.0-96.0); PLATELET COUNT, AUTOMATED 288 10^3/uL (150-450); RED BLOOD COUNT 4.35 10^6/uL (4.00-5.40); WHITE BLOOD COUNT 7.6 10^3/uL (4.0-10.0)
[2023-12-23 14:36] LABS: HIV 1&2 SCREEN NEGATIVE (NEGATIVE)
[2023-12-23 14:45] LABS: HEPATITIS C VIRUS ABY INDEX < 0.02 INDEX (<0.8)
[2023-12-23 15:04] LABS: GC DNA AMPLIFICATION NEGATIVE (NEGATIVE)
== END ==
LOC: M PLALAB 10:21
PROVIDERS: ATTEND Obstetrics & Gynecology
DX: Z34.81 Encounter for supervision of other normal pregnancy, first trimester (principal)

== ENCOUNTER → 2024-01-18 | Outpatient (CLI) | payer OTHER | LOC: M PLALAB 11:12 | PROVIDERS: ATTEND Specialist | DX: Z34.82 Encounter for supervision of other normal pregnancy, second trimester (principal) ==

== ENCOUNTER → 2024-02-23 | Outpatient (CLI) | payer OTHER | LOC: M WHC 08:55 | PROVIDERS: ATTEND Specialist | DX: Z34.82 Encounter for supervision of other normal pregnancy, second trimester (principal) ==

== ENCOUNTER → 2024-04-09 | Outpatient (CLI) | payer OTHER ==
[2024-04-09 17:54] LABS: HEMOGLOBIN 11.7 g/dl (12.0-15.5); MEAN CORPUSCULAR HEMOGLOBIN 30.5 pg (27.0-33.0); MEAN CORPUSCULAR HGB CONC 33.4 g/dl (32.0-36.5); MEAN CORPUSCULAR VOLUME 91.1 fl (80.0-96.0); PLATELET COUNT, AUTOMATED 244 10^3/uL (150-450); RED BLOOD COUNT 3.84 10^6/uL (4.00-5.40); WHITE BLOOD COUNT 8.5 10^3/uL (4.0-10.0)
[2024-04-09 17:57] LABS: GLUCOSE CHALLENGE TEST 1 HOUR 98 MG/DL (LESS THAN 140)
[2024-04-09 18:27] LABS: HIV 1&2 SCREEN NEGATIVE (NEGATIVE)
[2024-04-09 18:34] LABS: HEPATITIS C VIRUS ABY INDEX < 0.02 INDEX (<0.8)
[2024-04-09 21:21] LABS: GC DNA AMPLIFICATION NEGATIVE (NEGATIVE)
== END ==
LOC: M PLALAB 13:50
PROVIDERS: ATTEND Nurse Practitioner Family
DX: Z34.82 Encounter for supervision of other normal pregnancy, second trimester (principal)

== ENCOUNTER → 2024-04-26 | Outpatient (CLI) | payer OTHER | LOC: M WHC 08:27 | PROVIDERS: ATTEND Nurse Practitioner Family | DX: Z34.82 Encounter for supervision of other normal pregnancy, second trimester (principal) ==

== ENCOUNTER → 2024-05-03 | Outpatient (REF) | payer OTHER | LOC: M SFHCWAGY 16:54 | PROVIDERS: ATTEND Nurse Practitioner Family | DX: L29.3 Anogenital pruritus, unspecified (principal) ==

== ENCOUNTER → 2024-05-03 | Outpatient (REF) | payer OTHER | LOC: M PLALAB 15:23 | PROVIDERS: ATTEND Nurse Practitioner Family | DX: L29.3 Anogenital pruritus, unspecified (principal) ==

== ENCOUNTER → 2024-05-28 | Outpatient (REF) | payer OTHER | LOC: M SFHCWAGY 16:49 | PROVIDERS: ATTEND Obstetrics & Gynecology | DX: R30.0 Dysuria (principal) ==

== ENCOUNTER → 2024-06-12 | Outpatient (REF) | payer OTHER | LOC: M SFHCWAGY 12:57 | PROVIDERS: ATTEND Obstetrics & Gynecology | DX: Z36.89 Encounter for other specified antenatal screening (principal); Z3A.36 36 weeks gestation of pregnancy ==

== ENCOUNTER 2024-06-15 13:25 | Outpatient (CLI) | payer OTHER ==
[~2024-06-15] VITALS: Ht 160 cm; Wt 119.1 kg
[2024-06-15 13:50] VITALS: BP 126/64
[2024-06-15] MEDS ORDERED: HOME MED LIST COMPLETE! XX SCH (14:10)
[2024-06-15 15:08] VITALS: BP 128/66
== END 2024-06-15 15:15 | disposition home or self-care (01) ==
LOC: M LDO 13:25
PROVIDERS: ATTEND Obstetrics & Gynecology
DX: O47.03 False labor before 37 completed weeks of gestation, third trimester (principal); O99.213 Obesity complicating pregnancy, third trimester; E66.9 Obesity, unspecified; Z3A.37 37 weeks gestation of pregnancy
CPT/HCPCS: 59025; G0463

== ENCOUNTER 2024-06-29 13:57 | Inpatient (IN) | payer OTHER ==
[~2024-06-29] VITALS: Ht 160 cm; Wt 120.4 kg
[2024-06-29] MEDS: miSOPROStol 50MCG 1/2 TABLET SL SCH (01:24)
[2024-06-29] MEDS ORDERED: HOME MED LIST COMPLETE! XX SCH (14:15)
[2024-06-29 14:19] VITALS: BP 124/63; O2SAT 98
[2024-06-29] MEDS ORDERED: LIDOCAINE 1% MDV 20ML VIAL INFIL PRN (14:35)
[2024-06-29 15:32] LABS: HEMATOCRIT 34.6 % (36.0-47.0); HEMOGLOBIN 11.2 g/dl (12.0-15.5); MEAN CORPUSCULAR HGB CONC 32.4 g/dl (32.0-36.5); MEAN CORPUSCULAR VOLUME 86.5 fl (80.0-96.0); PLATELET COUNT, AUTOMATED 210 10^3/uL (150-450); WHITE BLOOD COUNT 8.4 10^3/uL (4.0-10.0)
[2024-06-29 16:25] VITALS: BP 128/61
[2024-06-29 16:38] LABS: HIV 1&2 SCREEN NEGATIVE (NEGATIVE)
[2024-06-29 16:47] LABS: HEPATITIS C VIRUS ABY INDEX 0.02 INDEX (<0.8)
[2024-06-29 17:57] VITALS: BP 118/69
[2024-06-29 21:10] VITALS: BP 124/61
[2024-06-30] VITALS (60 sets, daily range): BP systolic 78–143; BP diastolic 39–74; O2SAT 97
[2024-06-30] MEDS ORDERED: diphenhydrAMINE 50MG/ML VIAL IV PRN (09:05)
[2024-06-30] MEDS ORDERED: ONDANSETRON 4MG 2ML VIAL IV PRN (09:05)
[2024-06-30] MEDS ORDERED: EPIDURAL/PCA KEYS XX PRN (09:05)
[2024-06-30] MEDS ORDERED: NALOXONE INJ 0.4MG/1ML VIAL IV PRN (09:05)
[2024-06-30] MEDS ORDERED: FENTANYL/ROPIVACAINE/NACL BAG 100 ML EPIDURAL SCH (09:05)
[2024-06-30] MEDS ORDERED: LR 500 ML IV PRN (09:05)
[2024-06-30] MEDS: OXYTOCIN DRIP 30 UNITS in IV 1 EA IV SCH ×2 (09:39→17:25)
[2024-06-30] MEDS: LR 1,000 ML IV SCH (09:40)
[2024-06-30] MEDS: FENTANYL/ROPIVACAINE/NACL BAG 100 ML EPIDURAL SCH (09:41)
[2024-06-30] MEDS: ePHEDrine SULFATE 25 MG/5 ML(5MG/ML) SYRINGE IVP PRN (14:08)
[2024-06-30] MEDS: OXYTOCIN DRIP 30 UNITS in IV 1 EA IV PRN (17:12)
[2024-06-30] MEDS ORDERED: RHOGAM 300MCG (1500IU) INJ IM SCH (17:25)
[2024-06-30] MEDS ORDERED: ACETAMINOPHEN 325 MG TAB PO PRN (17:25)
[2024-06-30] MEDS ORDERED: METHYLERGONOVINE MALEATE 0.2 MG TAB PO PRN (17:25)
[2024-06-30] MEDS ORDERED: ACETAMINOPHEN 500 MG TAB PO PRN (17:25)
[2024-06-30 17:27] LABS: CORD GAS ABE A -3.9; CORD GAS HCO3 A 22.7 MMOL/L; CORD GAS O2 SAT A 38.8 %; CORD GAS PCO2 A 46.7 mmHg; CORD GAS PH A 7.304 UNITS; CORD GAS PO2 A 17.9 mmHg; CORD GAS TCO2 A 24.1 MMOL/L
[2024-06-30 17:30] LABS: CORD GAS ABE V -4.1; CORD GAS HCO3 V 21.3 MMOL/L; CORD GAS O2 SAT V 69.8 %; CORD GAS PCO2 V 40.1 mmHg; CORD GAS PH V 7.343 UNITS; CORD GAS PO2 V 28.1 mmHg; CORD GAS SBC V 20.5 MMOL/L; CORD GAS TCO2 V 22.5 MMOL/L
[2024-06-30] MEDS: IBUPROFEN 600MG TAB PO PRN (21:37)
[2024-07-01] MEDS: IBUPROFEN 800 MG TAB PO PRN (03:01)
[2024-07-01 06:00] VITALS: BP 111/75; O2SAT 97
[2024-07-01] MEDS: DIBUCAINE 1% OINTMENT 30GM TOP PRN (10:14)
[2024-07-01] MEDS: DOCUSATE SODIUM 100MG CAPSULE PO PRN (10:14)
[2024-07-01] MEDS: PRENATAL VITAMINS CHEWABLE TABLET PO SCH (10:14)
[2024-07-01 10:23] VITALS: BP 111/75; TEMP 98.4; O2SAT 97
[2024-07-01 19:08] VITALS: BP 121/72; O2SAT 99
[2024-07-02 06:00] VITALS: BP 110/55; O2SAT 99
[2024-07-02] MEDS: MEASLES,MUMPS,RUBELLA VACCINE INJ (MMR-II) SC.IMMUN ONE (09:00)
== END 2024-07-02 14:09 | disposition home or self-care (01) | DRG 560 ==
LOC: M LDI 13:57 → M OBS 06-30 19:38
PROVIDERS: ADMIT Specialist; ATTEND Obstetrics & Gynecology
PROC: 3E0P7GC Introduction of Other Therapeutic Substance into Female Reproductive, Via Natural or Artificial Opening (ICD-10-PCS; 2024-06-29)
PROC: 10E0XZZ Delivery of Products of Conception, External Approach (ICD-10-PCS; principal; 2024-06-30)
DX: O80 Encounter for full-term uncomplicated delivery (principal); Z37.0 Single live birth; Z3A.39 39 weeks gestation of pregnancy

== ENCOUNTER → 2025-01-22 | Outpatient (REF) | payer OTHER | LOC: M SFHCWAGY 18:39 | PROVIDERS: ATTEND Specialist | DX: Z01.419 Encounter for gynecological examination (general) (routine) without abnormal findings (principal) ==